=== PATIENT | male | born 1990 | race Caucasian/White ===

== ENCOUNTER 2017-08-18 15:57 | Emergency (ER) | payer OTHER ==
[2017-08-18 16:10] VITALS: BP 119/86
[2017-08-18] MEDS ORDERED: Alum Hydrox/Mag Hydrox/Simeth 30 ML, Lidocaine 2% 15 ML PO STA ×2 (16:49)
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
[2017-08-18] MEDS ORDERED: Famotidine 20 MG Tab PO ONE (18:22)
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
== END 2017-08-18 18:41 | disposition home or self-care (01) ==
LOC: JD.ED 15:57
DX: K21.9 Gastro-esophageal reflux disease without esophagitis (principal); F17.210 Nicotine dependence, cigarettes, uncomplicated; Z88.1 Allergy status to other antibiotic agents; Z79.899 Other long term (current) drug therapy
CPT/HCPCS: 36415; 71046; 80053; 84484; 85025; 85379; 85610; 85730; 93005; 99285; A9270; 93010; 99284-25

== ENCOUNTER 2017-09-24 13:05 | Emergency (ER) | payer OTHER ==
[2017-09-24 13:16] VITALS: BP 128/81
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
== END 2017-09-24 14:10 | disposition home or self-care (01) ==
LOC: JD.ED 13:05
DX: M54.31 Sciatica, right side (principal); F17.210 Nicotine dependence, cigarettes, uncomplicated; Z88.1 Allergy status to other antibiotic agents
CPT/HCPCS: 99283

== ENCOUNTER 2017-09-27 11:26 | Emergency (ER) | payer OTHER ==
[2017-09-27 11:40] VITALS: BP 140/98
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
== END 2017-09-27 13:05 | disposition home or self-care (01) ==
LOC: JD.ED 11:26
DX: M54.41 Lumbago with sciatica, right side (principal); F90.9 Attention-deficit hyperactivity disorder, unspecified type; F17.210 Nicotine dependence, cigarettes, uncomplicated; Z88.1 Allergy status to other antibiotic agents; Z79.899 Other long term (current) drug therapy
CPT/HCPCS: 99283

== ENCOUNTER 2019-02-03 08:47 | Emergency (ER) | payer BC, OTHER ==
[2019-02-03 09:08] VITALS: BP 120/84
[2019-02-03] MEDS ORDERED: Cyclobenzaprine 10 MG Tab PO ONE (09:13)
[2019-02-03] MEDS ORDERED: Ketorolac 60 MG/2 ML SDV IM ONE (09:13)
[2019-02-03] MEDS ORDERED: HYDROmorphone 1 MG/ML Syringe IM ONE (09:13)
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
== END 2019-02-03 09:55 | disposition home or self-care (01) ==
LOC: JD.ED 08:47
DX: M54.5 Low back pain (principal); F17.210 Nicotine dependence, cigarettes, uncomplicated; Z88.1 Allergy status to other antibiotic agents
CPT/HCPCS: 96372; 99283; A9270; J1170; J1885

== ENCOUNTER 2019-06-21 18:04 | Emergency (ER) | payer SELFPAY ==
[2019-06-21 18:26] VITALS: BP 122/83; PULSE 77
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
[2019-06-21] MEDS ORDERED: Famotidine 20 MG Tab PO ONE (18:41)
--- NOTE | 2019-06-21 19:41 | CR ---
Abdomen: Supine view of the abdomen was obtained. Comparison: No previous abdominal x-ray. Multiple calcifications are seen within the pelvis which are compatible with phleboliths. Bowel gas pattern is normal. Bony structures appear within normal limits. Impression: 1. Nothing acute is seen on supine abdominal x-ray. Diagnostic code #1 This report was dictated in [place] Standard Time
== END 2019-06-21 21:03 | disposition home or self-care (01) ==
LOC: JD.ED 18:04
DX: K29.21 Alcoholic gastritis with bleeding (principal); K92.0 Hematemesis; F10.10 Alcohol abuse, uncomplicated; Y90.0 Blood alcohol level of less than 20 mg/100 ml; Z88.1 Allergy status to other antibiotic agents
CPT/HCPCS: 36415; 74018; 80053; 80320; 83690; 85025; 85610; 85730; 99284; A9270; 99283; G0480

== ENCOUNTER 2020-04-27 07:51 | Emergency (ER) | payer SELFPAY ==
[2020-04-27 08:08] VITALS: PULSE 80
[2020-04-27] MEDS ORDERED: Dextrose 5%-Lactated Ringers 1,000 ML IV SCH (08:15)
[2020-04-27] MEDS ORDERED: Metoclopramide 10 MG/2 ML SDV IVPUSH ONE (08:16)
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
[2020-04-27 10:46] VITALS: BP 120/70
--- NOTE | 2020-04-29 09:39 | CR ---
PROCEDURE INFORMATION: Exam: XR Chest, 1 View Exam date and time: 04/27/2020 8:09 AM Age: 29 years old Clinical indication: Other: Chills and rigors this am. TECHNIQUE: Imaging protocol: XR of the chest Views: 1 view. COMPARISON: DX Chest 2V 08/18/2017 5:27 PM FINDINGS: Lungs: Unremarkable. No consolidation. Pleural space: Unremarkable. No pleural effusion. No pneumothorax. Heart/Mediastinum: Unremarkable. No cardiomegaly. Bones/joints: Plate and screws in the midshaft of the clavicle IMPRESSION: No acute process Thank you for allowing us to participate in the care of your patient. Dictated and Authenticated by: Pasha Hubbard MD 04/27/2020 9:38 AM Central Time ([place] & [place]) [facility]és[facility]
== END 2020-04-27 10:47 | disposition home or self-care (01) ==
LOC: JD.ED 07:51
DX: A08.4 Viral intestinal infection, unspecified (principal); F17.210 Nicotine dependence, cigarettes, uncomplicated; Z88.1 Allergy status to other antibiotic agents
CPT/HCPCS: 36415; 71045; 80053; 82009; 83690; 83735; 85025; 85610; 85730; 86140; 96374; 99284; J2765; J7121; 99283